=== PATIENT | male | born 1995 | race Hispanic/Latino ===

== ENCOUNTER 2019-08-31 20:59 | Emergency (ER) | payer SELFPAY ==
[2019-08-31 21:36] VITALS: BP 144/88
== END 2019-08-31 21:39 | disposition home or self-care (01) | DRG 156 ==
LOC: ED 20:59
PROC: 09C3XZZ Extirpation of Matter from Right External Auditory Canal, External Approach (ICD-10-PCS; principal; 2019-08-31)
DX: T16.1XXA Foreign body in right ear, initial encounter (principal); X58.XXXA Exposure to other specified factors, initial encounter